=== PATIENT | male | born 1955 | race Hispanic/Latino ===

== ENCOUNTER 2023-02-17 15:45 | Emergency (ER) | payer OTHER ==
[~2023-02-17] VITALS: Ht 154.9 cm; Wt 95.2 kg
[2023-02-17] MEDS ORDERED: METFORMIN HCL500 MG PO (16:07)
[2023-02-17] MEDS ORDERED: LIPITOR20 MG PO (16:07)
[2023-02-17] MEDS ORDERED: FARXIGA10 MG PO (16:08)
[2023-02-17] MEDS ORDERED: CYCLOBENZAPRINE10 MG PO (16:09)
[2023-02-17] MEDS ORDERED: MELOXICAM15 MG PO (16:10)
[2023-02-17] MEDS ORDERED: METHOCARBAMOL750 MG PO (16:10)
[2023-02-17] MEDS ORDERED: LISINOPRIL10 MG PO (16:11)
[2023-02-17 17:16] LABS: BASOPHILS 0.4 % (0-2); EOSINOPHILS 3.2 % (0-6); HEMATOCRIT 42.6 % (35.0-50.0); HEMOGLOBIN 14.5 g/dL (12.0-18.0); LYMPHOCYTES 32.1 % (24-44); MCH 32.2 (27-36); MCHC 34.1 g/dl (30-36); MCV 94.3 fl (81-99); MONOCYTES 7.8 % (0-12); NEUTROPHILS 56.5 % (39-80); PLATELET COUNT 227 K/uL (140-440); RBC 4.51 M/ul (4.3-5.7); RDW 12.9 (10.5-15.0)
[2023-02-17 17:31] LABS: ALBUMIN 3.5 g/dL (3.4-5.0); ALBUMIN/GLOBULIN RATIO 0.97 (1.1-2.4); BILIRUBIN, TOTAL 0.3 ng/dL (0.2-1.0); BUN/CREATININE RATIO 16.27 (6.0-28.6); CREATININE, SERUM 0.86 mg/dL (0.70-1.30); PROTEIN, TOTAL 7.1 g/dL (6.4-8.2)
[2023-02-17 17:31] LABS: BILIRUBIN, URINE NEGATIVE (negative); BLOOD/HGB, URINE NEGATIVE (Negative); KETONE, URINE NEGATIVE (Negative); LEUK ESTERASE, URINE NEGATIVE (negative); NITRITE, URINE NEGATIVE (negative); PH, URINE 5.5 (5-7)
[2023-02-17] MEDS ORDERED: HYDROCODON-ACE1 EA10 PO (21:02)
[2023-02-17 21:51] VITALS: BP 131/79
== END 2023-02-17 21:52 | disposition home or self-care (01) ==
LOC: ED 15:45
PROVIDERS: Emergency Medicine
DX: K82.8 Other specified diseases of gallbladder (principal); I71.43 Infrarenal abdominal aortic aneurysm, without rupture; E11.9 Type 2 diabetes mellitus without complications; E78.5 Hyperlipidemia, unspecified; Z79.899 Other long term (current) drug therapy; Z79.84 Long term (current) use of oral hypoglycemic drugs
CPT/HCPCS: 36415; 74177; 80053; 81003; 83690; 85025; 96375; 99284-25; A9270; J2270; J2405; Q9967